=== PATIENT | male | born 1965 | race Hispanic/Latino ===

== ENCOUNTER 2019-03-10 13:50 | Emergency (ER) | payer BC | END 2019-03-10 16:07 | disposition home or self-care (01) | LOC: EDH 13:50 | DX: R13.10 Dysphagia, unspecified (principal); E11.9 Type 2 diabetes mellitus without complications; E78.5 Hyperlipidemia, unspecified; Z98.890 Other specified postprocedural states | CPT/HCPCS: 70490 ==

== ENCOUNTER → 2023-05-19 | Outpatient (CLI) | payer OTHER ==
[~2023-05-19] MED LIST: IOHEXOL-350 75 ML VIAL IV ONE
== END | disposition home or self-care (01) ==
LOC: RAH 09:26
PROVIDERS: ATTEND Internal Medicine
DX: N32.89 Other specified disorders of bladder (principal); R31.9 Hematuria, unspecified
CPT/HCPCS: 74177; Q9967

== ENCOUNTER 2024-10-22 08:53 | Emergency (ER) | payer OTHER ==
[~2024-10-22] VITALS: Ht 177.8 cm; Wt 104.3 kg
[2024-10-22 09:16] LABS: ADD UA MICROSCOPIC YES; APPEARANCE,URINE CLEAR (CLEAR); BILIRUBIN,URINE NEGATIVE (NEGATIVE); COLOR,URINE YELLOW (YELLOW); GLUCOSE, URINE (UA) >=1000 mg/dL (NEGATIVE); KETONES,URINE NEGATIVE (NEGATIVE); LEUKOCYTE ESTERASE ,URINE 250 Leu/uL (NEGATIVE); NITRATE,URINE NEGATIVE (NEGATIVE); OCCULT BLOOD,URINE NEGATIVE (NEGATIVE); PROTEIN,URINE NEGATIVE (NEGATIVE); UROBILINOGEN,URINE 0.2 mg/dL (0.2-1.0)
[2024-10-22 09:18] LABS: BACTERIA,URINE RARE /HPF (None Seen); MUCUS,URINE RARE LPF (None Seen); SQUAMOUS EPITHELIAL CELL,UR FEW /HPF (0-2)
--- NOTE | 2024-10-22 09:27 | ERN ---
ED Note History of Present Illness Stated Complaint: COUGH, FEVER, HEADACHE Chief Complaint: Influenza Dictation: This is a case of 59-year-old male with a past medical history of diabetes mellitus type 2, hypertension, high cholesterol who presented to the ED with the complaints of mild diffuse headache, fever, dry cough, mild low back pain since yesterday night. He also complains of moderate, constant right upper quadrant and epigastric pain radiating to the back since last night. He denies nausea, vomiting, chest pain, palpitations, shortness of breath, burning sensation when urinating, increased frequency of urination, diarrhea/constipation. Allergies: Coded Allergies: No Known Allergies (Unverified Allergy, Unknown, 03/10/19) Home Meds Active Scripts Famotidine (Pepcid) 20 Mg Tablet, 1 TAB PO BID for 10 Days, #20 TAB 0 Refills Prov:SHANA WINSTON MD 10/22/24 Doxycycline Hyclate (Doxycycline Hyclate) 100 Mg Tablet, 1 TAB PO BID for 10 Days, #20 TAB 0 Refills Prov:SHANA WINSTON MD 10/22/24 Past Medical History Past Medical History: Diabetes-Type II, High Cholesterol, Hypertension Surgical History: Other Surgical History Other: BACK Review of System Dictation CONSTITUTIONAL: No chills, no fever, no weakness, no diaphoresis, no malaise. HEAD/FACE: No signs of trauma. EENT: No eye pain, no blurred vision, no tearing, no double vision, no ear pain, no ear discharge, no nose pain, no nasal congestion, no throat pain, no throat swelling, no mouth pain. RESPIRATORY: Cough, no orthopnea, no SOB, no stridor, no wheezing. CARDIOVASCULAR: No chest pain, no edema, no palpitations, no syncope. GASTROINTESTINAL/ABDOMINAL: Right upper quadrant and epigastric pain no constipation, no diarrhea, no nausea, no vomiting. GENITOURINARY: No abnormal discharge, no dysuria, no frequent urination, no hematuria. No complaints of pain in the genitals. MUSCULOSKELETAL: Lower back pain no gout, no joint pain, no joint swelling, no muscle pain, no muscle stiffness, no neck pain. INTEGUMENTARY: No change in color, no change in hair/nails, no dryness, no lesion, no lumps, no rash. NEUROLOGICAL/PSYCH: No anxiety, not depressed, no emotional problem, no headache, no numbness, no pre-existing deficit, no history of seizures, no tremors, no weakness. HEMATOLOGIC/LYMPHATIC: no history of blood clots, no apparent bleeding, no bruising, glands not swollen. All Systems Negative, Except as Noted. Initial Vital Sign VS Vital Signs Date Time Temp Pulse Resp B/P (MAP) Pulse Ox O2 Delivery O2 Flow Rate FiO2 10/22/24 08:54 98.8 88 20 126/68 99 Room Air 0 Physical Exam Dictation Physical Exam Dictation VITAL SIGNS: Reviewed. GENERAL APPEARANCE: Alert, oriented x3, no acute distress, obese. HEAD AND FACE: Non-traumatic. EYES: PERRL, pink conjunctivas, eyelid no trauma, anterior chamber clear. NOSE: No discharge, no bleeding. OROPHARYNX: Mouth normal, teeth no caries, tongue pink. Pharynx clear, no erythema. Tonsils no exudates, no abscesses noted. Mucous membrane moist. NECK: Supple, non-tender, no thyromegaly, no masses, no JVD, no bruits. BREAST: Deferred. CHEST: No tenderness, no crepitus, no paradoxical movement, no retractions. LUNGS: Clear, well-ventilated, symmetric, no rales, no wheezing, no rhonchi, no stridor, good breath sounds bilaterally. HEART: Regular rate, regular rhythm, no murmur, no gallops. VASCULAR: No peripheral edema. ABDOMEN: Soft, positive bowel sounds, nondistended, no guarding, nontender, no rebound, no masses, no Goyal's sign, no hernias. RECTAL: Deferred. GENITAL: Deferred. NEUROLOGICAL: Normal speech, gross motor function intact, gross sensory function intact. MUSCULOSKELETAL: Neck nontender, full range of motion, back nontender, full range of motion. EXTREMITIES: Nontender, full range of motion. SKIN: Color pink, dry, no turgor, no rash, no lacerations, no abrasions, no contusions. LYMPHATICS: Deferred. Results (Laboratory/Radiology) Laboratory/Radiology Laboratory Tests Test 10/22/24 09:00 10/22/24 09:19 10/22/24 09:41 Urine Color YELLOW (YELLOW) Urine Appearance CLEAR (CLEAR) Urine pH 6.0 (5.0-8.0) Urine Specific [place] 1.043 (1.001-1.031) Urine Protein NEGATIVE mg/dL (NEGATIVE) Urine Glucose (UA) >=1000 mg/dL (NEGATIVE) H Urine Ketones NEGATIVE mg/dL (NEGATIVE) Urine Occult Blood NEGATIVE (NEGATIVE) Urine Nitrate NEGATIVE (NEGATIVE) Urine Bilirubin NEGATIVE mg/dL (NEGATIVE) Urine Urobilinogen 0.2 mg/dL (0.2-1.0) Urine Leukocyte Esterase 250 Yann/uL (NEGATIVE) H Urine RBC 2-5 /HPF (0-1) H Urine WBC 11-25 /HPF (0-1) H Urine Squamous Epithelial Cells FEW /HPF (0-2) Urine Bacteria RARE /HPF (None Seen) Influenza Type A Antigen Negative For Type A Influenza Type B Antigen Negative For Type B SARS-CoV-2 Antigen (Rapid) PRESUMPTIVE NEGATIVE Group A Streptococcus Rapid negative (NEGATIVE) White Blood Count 9.8 K/uL (4.8-10.8) Red Blood Count 5.55 MIL/uL (4.50-6.20) Hemoglobin 15.2 g/dL (14.0-18.0) Hematocrit 46.1 % (42-54) Mean Corpuscular Volume 83.1 fL (79-99) Mean Corpuscular Hemoglobin 27.4 pg (27.0-33.0) Mean Corpuscular Hemoglobin Concent 33.0 g/dL (32.0-36.0) Red Cell Distribution Width 14.4 % (11.0-15.5) Platelet Count 229 K/uL (130-400) Mean Platelet Volume 9.3 fL (7.5-10.5) Immature Granulocyte % (Auto) 0.4 % (0-1) Neutrophils (%) (Auto) 87.6 % (40.0-77.0) H Lymphocytes (%) (Auto) 7.0 % (21.0-51.0) L Monocytes (%) (Auto) 4.4 % (3.0-13.0) Eosinophils (%) (Auto) 0.4 % (0.0-8.0) Basophils (%) (Auto) 0.2 % (0.0-5.0) Neutrophils # (Auto) 8.6 K/uL (1.8-7.7) H Lymphocytes # (Auto) 0.7 K/uL (1.0-4.8) L Monocytes # (Auto) 0.4 K/uL (0.1-1.0) Eosinophils # (Auto) 0.04 K/uL (0.00-0.70) Basophils # (Auto) 0.02 K/uL (0.00-0.20) Absolute Immature Granulocyte (auto 0.04 K/uL (0-1) Nucleated Red Blood Cells 0.0 % (0.0-0.19) White Cell Morphology Comment See comments Sodium Level 136 mmol/L (136-145) Potassium Level 4.6 mmol/L (3.5-5.1) Chloride Level 102 mmol/L (101-111) Carbon Dioxide Level 26 mmol/L (21-32) Blood Urea Nitrogen 18 mg/dL (7-18) Creatinine 1.0 mg/dL (0.5-1.3) Glomerular Filtration Rate Calc 86 mL/min (>90) Random Glucose 298 mg/dL (70-105) H Total Calcium 8.8 mg/dL (8.5-10.1) Total Bilirubin 0.8 mg/dL (0.2-1.0) Aspartate Amino Transf (AST/SGOT) 15 U/L (10-37) Alanine Aminotransferase (ALT/SGPT) 14 U/L (12-78) Alkaline Phosphatase 101 U/L (50-136) Total Creatine Kinase 82 U/L (21-232) Troponin I High Sensitivity 4.2 ng/L (4-75) Total Protein 7.6 g/dL (6.0-8.3) Albumin 3.0 g/dL (3.5-5.0) L X-RAY Comment: PROCEDURE: CXR2VW - CHEST 2VWS CHEST 2VWS HISTORY: Cough COMPARISON: 02/21/2008 FINDINGS: Frontal and lateral projections of the chest were obtained. There is no acute pulmonary infiltrates or failure. The heart is not enlarged. Aortic calcifications are seen. Degenerative changes are seen of the thoracolumbar spine. IMPRESSION: 1. No acute pulmonary infiltrates. ED Course ED Course Orders Procedure Category Date Status Time Influenza Type A & B, LAB 10/22/24 Complete Rapid 08:54 Covid19 (Sars Antigen LAB 10/22/24 Complete Rapid) 08:54 Urinalysis Profile LAB 10/22/24 Complete 08:54 Cbc With Differential LAB 10/22/24 Complete 09:13 Comprehensive LAB 10/22/24 Complete Metabolic Panel 09:13 Cardiac Panel LAB 10/22/24 Complete 09:13 Chest 2vws RAD 10/22/24 Resulted 09:13 12 Lead Ekg Tracing- EKG 10/22/24 Complete Technical 09:13 Rapid (Group A Strep) LAB 10/22/24 Complete 09:13 Culture Urine DAGMAR 10/22/24 In Process 09:17 Lipase LAB 10/22/24 In Process 09:27 Vital Signs Date Time Temp Pulse Resp B/P (MAP) Pulse Ox O2 Delivery O2 Flow Rate FiO2 10/22/24 08:54 98.8 88 20 126/68 99 Room Air 0 Medical Decision Making MDM MDM Potential differential diagnoses include: Influenza COVID Viral syndrome Assessment: We will order CBC to rule any anemia, infections and to evaluate the overall health of the patient. CMP was ordered in order to assess various electrolytes, kidney function, liver function ,protein levels and blood glucose levels, cardiac panel, EKG and chest x-ray I will re-evaluate the patient after treatment and diagnostic exams have returned to determine whether they require further testing, can be safely discharged home, or need admission for further treatment and evaluation. Given the social determinants of health affecting care, including literacy, access to medical care, prescription drug management, and aewn-mju-azymiet drugs, I will ensure that treatment plans are tailored accordingly. Revaluation : Patient is alert awake and oriented. Hemodynamically stable. COVID, influenza, strep throat results came back negative. CBC, CMP are unremarkable. Urinalysis positive for leukocyte esterase, RBC, WBC indicating infection. Chest x-ray resulted in no acute findings. Disposition: PATIENT IS BEING DISCHARGED HOME WITH ORAL PRESCRIPTION OF DOXYCYCLINE HYCLATE 100 MG B.I.D. FOR 10 DAYS, 20 TABLETS FOR UTI AND SUSPECTED PROSTATITIS AND PEPCID 20 MG B.I.D. P.O. FOR 10 DAYS ADVISED TO FOLLOW UP WITH PCP WITHIN 2-3 DAYS COMPLETE THE ANTIBIOTIC COURSE DIRECTED DRINK PLENTY OF FLUIDS ESPECIALLY WATER AVOID IRRITANTS LIKE SMOKE, STRONG ODORS MONITOR FOR SYMPTOMS LIKE HIGH FEVER, CHILLS, CHEST PAIN, WORSENING SHORTNESS OF BREATH OR COUGHING UP BLOOD AND SEEK IMMEDIATE MEDICAL ATTENTION IN SUCH SCENARIO DX & DISP Disposition: Discharge Departure Critical Time: 30 minutes Condition: Stable Scripts Famotidine (Pepcid) 20 Mg Tablet 1 TAB PO BID for 10 Days, #20 TAB 0 Refills Prov: SHANA WINSTON MD 10/22/24 Doxycycline Hyclate (Doxycycline Hyclate) 100 Mg Tablet 1 TAB PO BID for 10 Days, #20 TAB 0 Refills Prov: SHANA WINSTON MD 10/22/24 Referrals: SELF,REFERRAL (PCP) SHANA WINSTON MD Oct 22, 2024 09:27
[2024-10-22 09:43] LABS: COVID19 (SARS ANTIGEN RAPID) PRESUMPTIVE NEGATIVE (NEGATIVE); INFLUENZA TYPE A Negative For Type A (NEGATIVE); INFLUENZA TYPE B Negative For Type B (NEGATIVE)
[2024-10-22 09:47] LABS: BASOPHILS # (AUTO) 0.02 K/uL (0.00-0.20); BASOPHILS % (AUTO) 0.2 % (0.0-5.0); EOSINOPHILS # (AUTO) 0.04 K/uL (0.00-0.70); EOSINOPHILS % (AUTO) 0.4 % (0.0-8.0); HEMATOCRIT 46.1 % (42-54); IMMATURE GRANULOCYTE ABSOLUTE 0.04 K/uL (0-1); LYMPHOCYTES # (AUTO) 0.7 K/uL (1.0-4.8); MEAN CORPUSCULAR HEMOGLOBIN 27.4 pg (27.0-33.0); MEAN CORPUSCULAR VOLUME 83.1 fL (79-99); MONOCYTES # (AUTO) 0.4 K/uL (0.1-1.0); MONOCYTES % (AUTO) 4.4 % (3.0-13.0); NEUTROPHILS # (AUTO) 8.6 K/uL (1.8-7.7); NEUTROPHILS % (AUTO) 87.6 % (40.0-77.0); PLATELET COUNT (AUTO) 229 K/uL (130-400); RED BLOOD CELL COUNT(AUTO) 5.55 MIL/uL (4.50-6.20); RED CELL DISTRIBUTION WIDTH 14.4 % (11.0-15.5); WHITE BLOOD COUNT (AUTO) 9.8 K/uL (4.8-10.8)
--- NOTE | 2024-10-22 10:04 | HMCIMG ---
CHEST 2VWS HISTORY: Cough COMPARISON: 02/21/2008 FINDINGS: Frontal and lateral projections of the chest were obtained. There is no acute pulmonary infiltrates or failure. The heart is not enlarged. Aortic calcifications are seen. Degenerative changes are seen of the thoracolumbar spine. IMPRESSION: 1. No acute pulmonary infiltrates.
[2024-10-22 10:07] LABS: BILIRUBIN,TOTAL 0.8 mg/dL (0.2-1.0); POTASSIUM 4.6 mmol/L (3.5-5.1); TOTAL PROTEIN, SERUM 7.6 g/dL (6.0-8.3)
--- NOTE | 2024-10-22 10:26 | EKG ---
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
[2024-10-22] MEDS ORDERED: FAMO-136 PO (10:36)
[2024-10-22] MEDS ORDERED: DOXY100T2 PO (10:36)
[2024-10-22 10:55] VITALS: BP 128/71; PULSE 80; RESP 20; TEMP 98.9; O2SAT 95
== END 2024-10-22 10:58 | disposition home or self-care (01) ==
LOC: EDH 08:53
DX: R05.9 Cough, unspecified (principal); R51.9 Headache, unspecified; R10.13 Epigastric pain; E11.9 Type 2 diabetes mellitus without complications; E78.00 Pure hypercholesterolemia, unspecified; I10 Essential (primary) hypertension; Z20.822 Contact with and (suspected) exposure to COVID-19
CPT/HCPCS: 36415; 71046; 80053; 81001; 82550; 83690; 84484; 85025; 87086; 87426; 87804; 87880; 93005; 99285